=== PATIENT | male | born 1980 | race Caucasian/White ===

== ENCOUNTER 2024-03-06 13:21 | Outpatient (AMB) | payer OTHER, SELFPAY ==
--- NOTE | 2024-03-06 13:30 | AM.OFFWIN_ITS ---
Intake Vital Signs 03/06/24 13:34 Height 5 ft 11 in Weight 180 lb BMI 25.1 BP 110/68 Blood Pressure Location Lt brachial Position Sitting Pulse 67 Pulse Source Pulse Oximeter Pulse Oximetry (%) 98 Intake Visit Reasons: [employer] RT finger nail loose Intake Note: pt is here for right finger nail loose Patient Tobacco Use Status: Never used Tobacco Accompanied by: Self / Same As Patient Allergies No Known Allergies Allergy (Verified 03/06/24 13:31) Do you need a note to return to daycare/school/sports/work: No HPI HPI Comments History of Present Illness Details History of Present Illness The patient is a 43-year-old male presenting with a detached fingernail resulting from a previous injury. The injury occurred a few weeks prior while the patient was moving bricks; he was wearing gloves when a rock squished his fingernail. Initially, there was minimal pain, but the nail turned completely purple upon removal of the glove. The patient used a drill bit to relieve pressure by creating a hole in the nail, which successfully prevented infection. Recently, the nail was accidentally caught and partially detached further, being popped out from the back. The patient expressed concerns about removing it without damaging the nail bed, as he wants it to regrow properly. There has been no significant pain, infection, or fever associated with the injury. The patient has consistently managed to keep the area clean. The exposed part of the nail is not causing significant discomfort, although slight inflammation seems present. The nail is currently hanging and difficult to secure with a bandage. PFSH Social History Patient Tobacco Use Status: Never used Tobacco Review of Systems Const All systems reviewed & are unremarkable except as noted in HPI and below Physical Exam Vital Signs: Last Vital Signs Pulse 67 03/06/24 13:34 BP 110/68 03/06/24 13:34 Pulse Ox 98 03/06/24 13:34 BMI result Body Mass Index 25.1 Const General: cooperative, healthy appearing, comfortable, no acute distress and well developed Orientation/consciousness: patient oriented x3 Limitations: no limitations HEENT Head: Yes normal to inspection Neck Neck: Yes normal visual inspection and Yes supple Neuro General: patient oriented x3 Extrem Other: right 4th digit:almost detached fingernail, green/black nail, with new nail growing underneath Assessment & Plan Assessment & Plan (1) Nail avulsion, finger: Code(s): S61.309A - Unspecified open wound of unspecified finger with damage to nail, initial encounter Qualifiers: Encounter type: initial encounter Qualified Code(s): S61.309A - Uns pecified open wound of unspecified finger with damage to nail, initial encounter Plan: Unable to pull the nail from the nail bed so we trimmed it down to the lowest possible point and recommended to soak it and eventually that last little piece will fall off. His new fingernail was already growing underneath as it has been a couple of weeks since he pulled the nail back/injured it. Gave him red flag warning signs on infection although this is very unlikely, recommended he return if he has any infectious concerns. Patient was informed and verbally consented to the use of an ambient scribe for clinic note documentation during this visit. Coding Level of Care Code New Pt Level 3 (06754) Diagnoses Avulsion of fingernail, initial encounter S61.309A Encounter type: initial encounter
[2024-03-06 13:34] VITALS: BP 110/68; PULSE 67; O2SAT 98; BMI 25.1
== END 2024-03-06 14:16 | disposition home or self-care (01) ==
PROVIDERS: Visit Provider Physician Assistant
DX: S61.309A Unspecified open wound of unspecified finger with damage to nail, initial encounter (principal)

== ENCOUNTER → 2024-03-06 13:21 | Outpatient (BNVA) | payer OTHER, SELFPAY | PROVIDERS: Visit Provider Physician Assistant ==